=== PATIENT | female | born 1960 | race Hispanic/Latino ===

== ENCOUNTER → 2021-01-31 | Outpatient (CLI) | payer BC | END | disposition home or self-care (01) | LOC: SHCH 15:34 | PROVIDERS: ATTEND Internal Medicine Cardiovascular Disease | DX: R94.31 Abnormal electrocardiogram [ECG] [EKG] (principal); I10 Essential (primary) hypertension | CPT/HCPCS: 93306; 93356 ==

== ENCOUNTER 2021-07-11 07:02 | Day surgery (SDC) | payer BC ==
[2021-07-09 09:53] LABS: BASOPHILS % (AUTO) 0.7 % (0.0-5.0); EOSINOPHILS % (AUTO) 2.1 % (0.0-8.0); HEMATOCRIT 39.4 % (36-48); LYMPHOCYTES % (AUTO) 41.2 % (21.0-51.0); MEAN CORPUSCULAR VOLUME 88.3 fL (79-99); MONOCYTES % (AUTO) 5.4 % (3.0-13.0); NEUTROPHILS % (AUTO) 50.4 % (40.0-77.0); PLATELET COUNT (AUTO) 208 K/uL (130-400); RED BLOOD CELL COUNT(AUTO) 4.46 MIL/uL (4.00-5.50); RED CELL DISTRIBUTION WIDTH 12.4 % (11.0-15.5); WHITE BLOOD COUNT (AUTO) 5.8 K/uL (4.8-10.8)
[2021-07-09 10:05] LABS: CREATININE 0.8 mg/dL (0.5-1.5); POTASSIUM 4.3 mmol/L (3.5-5.1)
[2021-07-09 10:27] LABS: INR 1.02 (0.85-1.15); PROTHROMBIN TIME 11.1 SEC (9.6-11.6)
[2021-07-09 10:28] LABS: PARTIAL THROMBOPLASTIN TIME 26.1 SEC (26.3-35.5)
[2021-07-10 09:08] VITALS: BP 183/64
[~2021-07-11] VITALS: Ht 149.9 cm; Wt 67.5 kg
[2021-07-11] VITALS (9 sets, daily range): BP systolic 117–187; BP diastolic 59–79
[~2021-07-11 07:02] MED LIST: AEC81 PO; HYDR12.54 PO; LOSA50TA64 PO; MV-M1TAB57 PO
[2021-07-11] MEDS ORDERED: 0.9%NACL 1000ML 1,000 ML IV ONE (07:21)
[2021-07-11] MEDS ORDERED: BUPIVACAINE/PF 0.25% 30ML VIAL IJ ONE (09:20)
[2021-07-11] MEDS ORDERED: LIDOCAINE HCL 1% MDV 50ML VIAL ONE (09:20)
[2021-07-11] MEDS ORDERED: CEFAZOLIN SODIUM 1 GM VIAL ONE (09:20)
[2021-07-11] MEDS ORDERED: MEPERIDINE-PF 25 MG/ML SYG ONE ×2 (09:50→10:07)
[2021-07-11] MEDS ORDERED: MIDAZOLAM HCL 1 MG/ML 2ML VIAL ONE ×2 (09:50→10:08)
[2021-07-11] MEDS ORDERED: IOHEXOL-350 50ML VIAL IV ONE (10:14)
[2021-07-11] MEDS ORDERED: ACETAMINOPHEN WITH CODEINE 1 TAB TAB PO PRN (11:00)
[2021-07-11] MEDS ORDERED: TRAM50TA4 PO (11:00)
== END 2021-07-11 15:00 | disposition home or self-care (01) ==
LOC: DAH 07:02
PROVIDERS: ATTEND Internal Medicine Cardiovascular Disease
DX: I49.5 Sick sinus syndrome (principal); I44.2 Atrioventricular block, complete; I10 Essential (primary) hypertension; Z79.01 Long term (current) use of anticoagulants; Z79.82 Long term (current) use of aspirin; Z79.899 Other long term (current) drug therapy; Z98.890 Other specified postprocedural states; Z95.0 Presence of cardiac pacemaker
CPT/HCPCS: 33208; 36415; 71045; 80048; 85025; 85610; 85730; 93005; A4215; A4221; A4222; A4223 ×3; A4606; A4663; C1785; C1898 ×2; J0690; J2175 ×2; J2250 ×2; J3490 ×2; J7030; 99156; 99157; Q9967